=== PATIENT | male | born 1980 | race Caucasian/White ===

== ENCOUNTER 2019-12-13 10:59 | Emergency (ER) | payer OTHER, SELFPAY ==
[2019-12-13 11:09] VITALS: BP 131/78; PULSE 70; RESP 20; TEMP 37.2; O2SAT 100
--- NOTE | 2019-12-13 11:15 | ED.ABDPAIN ---
HPI - Abdominal Pain General Chief Complaint: Unspecified <Castillo Riley PA-C - Last Filed: 12/13/19 11:19> Stated Complaint: abd pain/eval for hernia? <Castillo Riley PA-C - Last Filed: 12/13/19 11:19> Time Seen by Provider: 12/13/19 11:03 <Castillo Riley PA-C - Last Filed: 12/13/19 11:19> Source: patient and other <Castillo Riley PA-C - Last Filed: 12/13/19 11:19> Mode of arrival: ambulatory <Castillo Riley PA-C - Last Filed: 12/13/19 11:19> Limitations: no limitations <Castillo Riley PA-C - Last Filed: 12/13/19 11:19> History of Present Illness HPI narrative: Patient is a 39-year-old male who presents to emergency department for evaluation of abdominal pain that began yesterday after lifting a heavy object felt a strain in the abdomen just above the umbilicus where he now has a small bulge patient denies similar occurrence in the past pain is worse with activity movement and palpation. . Patient notes today he was lifting again and had increasing pain patient has not had anything for his symptoms and presents in no distress per private vehicle pain does not radiate <Castillo Riley PA-C - Last Filed: 12/13/19 11:19> Related Data Allergies/Adverse Reactions: Allergies Allergy/AdvReac Type Severity Reaction Status Date / Time No Known Allergies Allergy Unverified 12/13/19 11:17 <Castillo Riley PA-C - Last Filed: 12/13/19 11:19> Review of Systems Review of Systems: All systems reviewed & are unremarkable except as noted in HPI and below <Castillo Riley PA-C - Last Filed: 12/13/19 11:19> PMFSH Social History Social History: Social History Smoking status: Heavy tobacco smoker Alcohol intake: current Gender identity (if verbalized by the patient): Male <Castilol Riley PA-C - Last Filed: 12/13/19 11:19> Exam Narrative: Exam Narrative: GENERAL: Well-appearing, well-nourished, and in no acute distress. HEAD: Normocephalic, atraumatic. EYES: PERRLA and EOMI. ENT: Nares clear, no rhinorrhea or epistaxis. Mucous membranes moist. CHEST: Clear to auscultation. No respiratory distress. No wheezes rales or rhonchi HEART: Regular rate and rhythm. No murmur heard. Normal peripheral pulses. ABDOMEN: Soft, umbilical hernia that is easily reducible no other abnormalities of the abdomen, nondistended, normal active bowel sounds. EXTREMITIES: Normal range of motion. No edema. SKIN: Warm, dry, no rash. NEURO: No focal deficits. Alert and oriented x3. PSYCH: Normal mood and affect. <XIN Frost Last Filed: 12/13/19 11:19> Procedures Other Procedure Procedure 1: Other Procedure: Patient with umbilical hernia that was easily reducible manually <XIN Frost Last Filed: 12/13/19 11:19> Course Course Emergency Course: Patient with umbilical hernia that is reducible felt appropriate for discharge home per surgical consult provided with reasons to return <XIN Frost Last Filed: 12/13/19 11:19> Vital Signs Vital signs: Vital Signs Temperature 37.2 C 12/13/19 11:09 Pulse Rate 70 12/13/19 11:09 Respiratory Rate 12/13/19 11:09 Blood Pressure 131/78 12/13/19 11:09 Pulse Oximetry 100 12/13/19 11:09 Temperature 37.2 C 12/13/19 11:09 Pulse Rate 70 12/13/19 11:53 Respiratory Rate 12/13/19 11:53 Blood Pressure 140/82 12/13/19 11:53 Pulse Oximetry 97 12/13/19 11:53 <XIN Frost Last Filed: 12/13/19 11:19> Vital Signs Temperature 37.2 C 12/13/19 11:09 Pulse Rate 70 12/13/19 11:09 Respiratory Rate 12/13/19 11:09 Blood Pressure 131/78 12/13/19 11:09 Pulse Oximetry 100 12/13/19 11:09 Temperature 37.2 C 12/13/19 11:09 Pulse Rate 70 12/13/19 11:53 Respiratory Rate 12/13/19 11:53 Blood Pressure 140/82 12/13/19 11:53 Pulse Oximetry
[2019-12-13 11:26] VITALS: PULSE 99; RESP 20; O2SAT 100
[2019-12-13] MEDS: KETOROLAC (*BKC) 60 MG/2 ML VIAL IM (11:27)
[2019-12-13 11:53] VITALS: BP 140/82; PULSE 70; RESP 20; O2SAT 97
== END 2019-12-13 11:54 | disposition home or self-care (01) ==
LOC: ANHED 11:29
PROVIDERS: Emergency Provider Emergency Medicine; PCP Emergency Medicine
DX: K42.9 Umbilical hernia without obstruction or gangrene (principal); F17.210 Nicotine dependence, cigarettes, uncomplicated
CPT/HCPCS: 96372; 99283; J1885

== ENCOUNTER 2019-12-27 00:39 | Outpatient (CLI) | payer OTHER, SELFPAY ==
[2019-12-27 18:53] LABS: SARS-CoV-2 RNA PCR Negative
== END 2019-12-27 00:40 | disposition home or self-care (01) ==
LOC: ANHCOVIDDT 00:39
PROVIDERS: PCP Emergency Medicine; Visit Provider Surgery
DX: Z01.812 Encounter for preprocedural laboratory examination (principal); Z11.59 Encounter for screening for other viral diseases
CPT/HCPCS: 87635; C9803; U0003

== ENCOUNTER 2019-12-29 00:38 | Day surgery (SDC) | payer OTHER, SELFPAY ==
[2019-12-19 11:36] VITALS: BMI 23.0
[2019-12-29 10:00] VITALS: BP 126/81; PULSE 78; RESP 18; TEMP 36.8; O2SAT 99
--- NOTE | 2019-12-29 10:14 | WPDHPUPDATE1 ---
History and Physical Update Update Date/Time: 12/29/19 10:14 History and Physical has been reviewed, including an updated exam of the patient. There are NO changes in the patient's condition. Risks, benefits, and alternatives have been discussed and questions answered. Patient agrees to proceed with procedure.
[2019-12-29] MEDS: LACTATED RINGERS 1,000 ML 30 ML IV CONT ×2 (10:20→13:19)
[2019-12-29] MEDS: ACETAMINOPHEN 500 MG TABLET 1000 MG PO (10:24)
[2019-12-29] MEDS: KETOROLAC 15 MG/ML VIAL (*BKC) IV PUSH (10:25)
--- NOTE | 2019-12-29 10:53 | WPDANESEPPF ---
Anes - Initial Pre Proc Eval Procedure: Operation Date: 12/29/19 12:00 Proposed Procedures p Repair Periumbilical Ventral Hernia - Marcial Sanhcez MD Date/Time: 12/29/19 10:53 Surgeon: Marcial Sanchez MD Pre Op Diagnosis: Ventral Hernia Patient Data Age: 39 Gender: M Height: 6 ft Weight: 77.11 kg Allergies Allergy/AdvReac Type Severity Reaction Status Date / Time No Known Allergies Allergy Verified 12/29/19 10:44 Home Medications Medication Instructions Recorded Confirmed Type No Home Medications 12/19/19 12/29/19 History Patient hx anesthesia problems: none Family hx anesthesia problems: none PMFSH Surgical History Surgical History H/O knee surgery Family History Family History Father High cholesterol Heart palpitations Grandparent Cancer Social History Social History Smoking packs per day: 1.5 Smoking cigarettes per day: 30.0 Years smoked: 20 Smoking pack-years: 30.00 Smoking status: Heavy tobacco smoker Tobacco type: cigarettes Alcohol intake: current Drinks per week: 12 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 Questions were solicited and answers provided to the satisfaction of the patient/family/POA.
[2019-12-29] MEDS: ceFAZolin 2 GM/D5W 50 ML 2 GM/50 ML BAG IVPB (12:38)
--- NOTE | 2019-12-29 13:17 | PM.PROC ---
Procedure Note - Detailed Date of procedure: 12/29/19 Pre-op diagnosis: Ventral Hernia primary ventral hernia Post-op diagnosis: same Procedure performed: repair primary ventral hernia Description of procedure: The patient was checked in the preoperative holding area. The supraumbilical, primary, ventral hernia was marked on the skin. The patient was then taken to the operating room and IV sedation was it introduced. Local was infiltrated in the area of the anticipated incision and in the surrounding subcutaneous tissues. Incision was made and dissection carried down through the superficial subcutaneous. The hernia sac was readily found. I dissected around the hernia sac down to its neck. Additional local was then infiltrated into the neck of the hernia and into the fascia around the hernia defect. The hernia sac was amputated at its neck. The sac was discarded. I placed a curved clamp in the defect and checked for signs of an additional abdominal wall defect in this vicinity. No other hernias were found. The defect was quite small, about 1 mm x 4 mm. The defect was closed with a nviyri-dy-iemxw mattress suture of 0 Ethibond. Additional local was infiltrated all around the repair. The subcutaneous was closed with interrupted 3 0 Vicryl suture. The skin was closed with subcuticular interrupted 4 O Vicryl suture. Exofin surgical adhesive was used for a dressing. Patient was awakened and taken to outpatient surgery in good condition. Sponge and needle counts were correct x2. Anesthesia: MAC and local ( 0.5% Marcaine mixed with Exparel) Surgeon: Marcial Sanchez MD Supervisor Multifocal Lens: Ventura TERESA Estimated blood loss (mL): 2 Drains: No Packing: No Pathology: none sent Complications: None Condition: stable Disposition: same day Findings: small primary hernia defect.
[2019-12-29 13:20] VITALS: BP 103/57; PULSE 68; RESP 16; O2SAT 98
[2019-12-29 13:50] VITALS: BP 105/61; PULSE 62
[2019-12-29 14:20] VITALS: BP 113/72; PULSE 84
== END 2019-12-29 14:35 | disposition home or self-care (01) ==
PROVIDERS: PCP Emergency Medicine; Visit Provider Surgery
PROC: (CPT 49560; principal; 2019-12-29 12:00)
DX: K43.9 Ventral hernia without obstruction or gangrene (principal); F17.210 Nicotine dependence, cigarettes, uncomplicated
CPT/HCPCS: 49560; A9270; C9290; J0690; J1885; J2250; J2405; J2704; J3010; J7120

== ENCOUNTER 2020-08-30 08:51 | Outpatient (CLI) | payer OTHER, SELFPAY ==
--- NOTE | 2020-08-30 09:00 | ECG_ITS ---
Measurements Intervals [place] Rate: 53 P: 60 KS: 157 QRS: 50 QRSD: 87 T: 38 QT: 377 QTc: 356 Interpretive Statements SINUS BRADYCARDIA ST ELEVATION IN ANTEROLATERAL LEADS, PROBABLY EARLY REPOLARIZATION PEAKED T WAVES- CONSIDER HYPERKALEMIA OR ISCHEMIA BASELINE ARTIFACT- I, III ,AVL ABNORMAL ECG Electronically Signed On 08-30-2020 9:18:18 CDT by Norberto Mckeon D.O.
== END 2020-08-30 08:52 | disposition home or self-care (01) ==
LOC: ANHSURGERY 08:56
PROVIDERS: PCP Emergency Medicine; Visit Provider Surgery
DX: Z01.810 Encounter for preprocedural cardiovascular examination (principal); F17.210 Nicotine dependence, cigarettes, uncomplicated; R94.31 Abnormal electrocardiogram [ECG] [EKG]
CPT/HCPCS: 93005

== ENCOUNTER → 2020-08-31 00:34 | Outpatient (CLI) | payer OTHER, SELFPAY ==
[2020-08-31 18:53] LABS: SARS-CoV-2 RNA PCR Negative
== END ==
PROVIDERS: PCP Emergency Medicine; Visit Provider Surgery
DX: Z01.812 Encounter for preprocedural laboratory examination (principal); Z20.822 Contact with and (suspected) exposure to COVID-19
CPT/HCPCS: C9803; U0003; U0005

== ENCOUNTER 2020-09-03 01:31 | Day surgery (SDC) | payer OTHER, SELFPAY ==
[2020-08-27 10:15] VITALS: BMI 23.7
--- NOTE | 2020-09-03 07:10 | WPDHPUPDATE1 ---
History and Physical Update Update Date/Time: 09/03/20 07:10 History and Physical has been reviewed, including an updated exam of the patient. There are NO changes in the patient's condition. Risks, benefits, and alternatives have been discussed and questions answered. Patient agrees to proceed with procedure.
[2020-09-03] MEDS: ACETAMINOPHEN 500 MG TABLET 1000 MG PO (11:55)
[2020-09-03] MEDS: LACTATED RINGERS 1,000 ML 30 ML IV CONT ×2 (12:05→14:14)
[2020-09-03] MEDS: KETOROLAC 15 MG/ML VIAL (*BKC) IV PUSH (12:12)
[2020-09-03 12:14] VITALS: BP 121/71; PULSE 65; RESP 16; TEMP 37.1; O2SAT 100
--- NOTE | 2020-09-03 12:19 | WPDANESEPPF ---
Anes - Initial Pre Proc Eval Procedure: Operation Date: 09/03/20 13:45 Proposed Procedures p Repair Recurrent Ventral Hernia - Marcial Sanchez MD Date/Time: 09/03/20 12:19 Surgeon: Marcial Sanchez MD Pre Op Diagnosis: ventral hernia Patient Data Age: 40 Gender: M Height: 6 ft Weight: 76.4 kg Last Vital Signs Temp 37.1 C 09/03/20 12:14 Pulse 65 09/03/20 12:14 Resp 16 09/03/20 12:14 BP 121/71 09/03/20 12:14 Pulse Ox 100 09/03/20 12:14 Allergies Allergy/AdvReac Type Severity Reaction Status Date / Time No Known Allergies Allergy Verified 09/03/20 12:00 Home Medications Medication Instructions Recorded Confirmed Type mv,Ca,zif-xhew-UE-lycopene 1 tablet PO DAILY 08/27/20 09/03/20 History [Centrum Men] Patient hx anesthesia problems: none Family hx anesthesia problems: none PMFSH Past Medical History Medical History Fatigue Smoker Surgical History Surgical History H/O hernia repair H/O knee surgery Family History Family History Father High cholesterol Heart palpitations Grandparent Cancer Other Hypertension Social History Social History Social History: Patient drinks caffeine daily including energy drinks. He also exercises at work. 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 Questions were solicited and answers provided to the satisfaction of the patient/family/POA.
[2020-09-03] MEDS: ceFAZolin 2 GM/D5W 50 ML 2 GM/50 ML BAG IVPB (13:27)
[2020-09-03] MEDS: BUPIVACAINE HCL 0.5% PF 30 ML VIAL 20 ML INFILTRATE (13:48)
[2020-09-03 14:14] VITALS: BP 112/67; PULSE 58; RESP 14; O2SAT 98
--- NOTE | 2020-09-03 14:27 | PM.PROC ---
Procedure Note - Detailed Date of procedure: 09/03/20 Pre-op diagnosis: Recurrent ventral hernia Recurrent ventral hernia Post-op diagnosis: same Procedure performed: Repair recurrent ventral hernia with 4.6 cm Parietex underlay mesh Description of procedure: The patient was checked in the preoperative holding area. The area of the hernia was noted to be the same as it was in his office visit. He was then taken to surgery and IV sedation was administered. The entire abdomen was prepped and draped. Local anesthetic was infiltrated over the old transverse incision in the supraumbilical location. The hernia was actually above the incision. It was at least 4 cm cephalad to the umbilicus which did not appear to be herniated. Incision was made and dissection was carried down through the skin and the superficial subcutaneous. The hernia sac was easily found. I dissected the hernia sac down to the fascia. I dissected around the neck of the hernia. I found 1 of the Ethibond sutures used in the original repair. It was tied and intact. I found a 2nd Ethibond suture which had apparently torn as it was un tied and seemed to be more associated with the recurrent hernia defect. Both the sutures were removed. The hernia itself was amputated at its neck. The hernia defect was still very small and I had to enlarge it both to the right and left lateral aspect. I was then able to be barely place a finger in the defect. I palpated the area looking for any other hernias or any adhesions to the anterior abdominal wall. None were found. I infiltrated additional local into the fascia all around the hernia defect. A 4.6 cm Parietex absentee-shawnee was chosen. It was placed in the defect and oriented symmetrically. I then placed cranial and caudal transfascial sutures of 0 Ethibond. The sutures were placed in such a manner to draw the edges of the hernia defect towards 1 another once they were tied. I went ahead and tied the suture and they had the desired effect. I then closed the hernia defect with hikafr-ex-rdrzk mattress suture of 0 Ethibond. Each of the suture incorporated a bit of mesh as well. The repair looked good. I infiltrated additional local into the fascia all around the hernia defect. The rest of the local anesthetic was infiltrated into the skin subcutaneous and well as some additional fascia. The repair looked good. I closed the subcutaneous with interrupted 3 0 Vicryl suture. The skin was closed with subcuticular interrupted 4 0 Vicryl suture. The wound was dressed with Exofin surgical adhesive. The patient was awakened and taken to recovery in good condition. Sponge and needle counts were correct x2. Implants: 4.6 cm Parietex underlay mesh Anesthesia: MAC and local (0.5% Marcaine with Exparel) Surgeon: Marcial Sanchez MD Software Quality Assurance Engineer: Denice TERESA Estimated blood loss (mL): 5 Drains: No Packing: No Pathology: none sent Complications: None Condition: stable Disposition: same day Findings: Small recurrent hernia defect about 4 mm in transverse dimension and 1 mm in craniocaudad dimension. Appeared to be the result of previous suture or fascia breaking down allowing a recurrent hole.
[2020-09-03 14:45] VITALS: BP 118/70; PULSE 47
[2020-09-03] MEDS: oxyCODONE HCL (*CRX) 5 MG TAB IR PO (14:47)
[2020-09-03 15:15] VITALS: BP 129/80; PULSE 60
== END 2020-09-03 15:20 | disposition home or self-care (01) ==
PROVIDERS: PCP Emergency Medicine; Visit Provider Surgery
PROC: 0WQF0ZZ Repair Abdominal Wall, Open Approach (ICD-10-PCS; CPT 49565; principal; 2020-09-03 13:45)
DX: K43.2 Incisional hernia without obstruction or gangrene (principal); Z87.891 Personal history of nicotine dependence
CPT/HCPCS: 49565; 49568; A9270; C1781; C9290; J0690; J1885; J2250; J2405; J2704; J3010; J7120